=== PATIENT | male | born 1985 | race Caucasian/White ===

== ENCOUNTER → 2016-04-13 | Outpatient (REF) | payer OTHER ==
[~2016-04-13] MED LIST: BUPR150T3 PO; DEXTROAMP-AMPHETAMIN PO; PRAZ1CAP PO; TRAZO50TA PO; XANA0.5T PO
[2016-04-13 21:10] LABS: CONTROL LINE INT CTR LINE PRESENT; HIV SCRN NEGATIVE (NEGATIVE); HIV SCRN1 NEGATIVE (NEGATIVE)
== END ==
LOC: M LAB REF 16:16
PROVIDERS: ATTEND Nurse Practitioner Family
DX: Z11.59 Encounter for screening for other viral diseases (principal)

== ENCOUNTER 2016-12-10 13:26 | Emergency (ER) | payer OTHER ==
[~2016-12-10] VITALS: Ht 167.6 cm; Wt 77.3 kg
[2016-12-10] MEDS ORDERED: NS 1,000 ML IV ONE (14:00)
[2016-12-10 14:32] LABS: BASO % 0.5 % (0.0-1.0); EOS # 0.2 K/mm3 (0.0-0.50); EOS % 2.5 % (0.0-3.0); LARGE UNSTAINED CELL # 0.2 K/mm3 (0.0-0.4); LARGE UNSTAINED CELL % 2.9 % (0.0-4.0); LYMPH # 1.8 K/mm3 (1.5-4.5); LYMPH % 22.7 % (24.0-44.0); MEAN CORPUSCULAR HEMOGLOBIN 31.3 pg (27.0-33.0); MEAN CORPUSCULAR HGB CONC 34.4 g/dl (32.0-36.5); MEAN CORPUSCULAR VOLUME 90.9 fl (80.0-96.0); MONO # 0.5 K/mm3 (0.0-0.8); MONO % 6.3 % (0.0-5.0); NEUTROPHILS # 5.1 K/mm3 (1.8-7.7); NEUTROPHILS % 65.2 % (36.0-66.0); PLATELET COUNT, AUTOMATED 289 k/mm3 (150-450); RED CELL DISTRIBUTION WIDTH 13.2 % (11.5-14.5); WHITE BLOOD COUNT 7.8 K/mm3 (4.0-10.0)
[2016-12-10 14:33] LABS: INR 0.88
[2016-12-10 14:55] LABS: ALBUMIN/GLOBULIN RATIO 1.18 (1.00-1.93); ALKALINE PHOSPHATASE 40 U/L (45-117); ALT/SGPT 25 U/L (12-78); AMYLASE 108 U/L (25-115); ANION GAP 8 MEQ/L (8-16); AST/SGOT 10 U/L (15-37); BILIRUBIN,DIRECT 0.1 MG/DL (0.0-0.2); BILIRUBIN,TOTAL 0.5 MG/DL (0.2-1.0); BLOOD UREA NITROGEN 15 MG/DL (7-18); CALCIUM LEVEL 9.2 MG/DL (8.5-10.1); CARBON DIOXIDE LEVEL 31 MEQ/L (21-32); CHLORIDE LEVEL 103 MEQ/L (98-107); CREATININE FOR GFR 0.86 MG/DL (0.70-1.30); GLOMERULAR FILTRATION RATE > 60.0 (>60); GLUCOSE, FASTING 84 MG/DL (70-105); POTASSIUM SERUM 4.2 MEQ/L (3.5-5.1); SODIUM LEVEL 142 MEQ/L (136-145); TOTAL PROTEIN 7.4 GM/DL (6.4-8.2)
[2016-12-10] MEDS ORDERED: GASTROGRAFIN SOLUTION 30ML PO ONE (15:25)
[2016-12-10] MEDS ORDERED: GASTROGRAFIN SOLUTION 30ML (Q9963) PO ONE (15:55)
[2016-12-10] MEDS ORDERED: ISOVUE-370 76% 100ML VIAL (Q9967) As Ordered ONE (16:54)
--- NOTE | 2016-12-10 17:20 | REP ---
Clinical: Rectal bleeding. Technique: Axial contrast enhanced images from the lung bases to the pubic symphysis using oral and 100 ml Isovue 370 intravenous contrast material with coronal and sagittal re-formations. Findings: Lung bases are clear. Visualized heart and pericardium normal. Liver, spleen, pancreas, gallbladder, bilateral adrenal glands and kidneys are normal. The enteric system is without obstruction and a normal terminal ileum and appendix are identified in the right lower quadrant. Subtle mural thickening to the descending colon may reflect a mild colitis. Pelvis demonstrates normal bladder and age appropriate prostate/seminal vesicles. No free air. No free fluid. No adenopathy or mass. Surrounding musculoskeletal structures are intact. Impression: 1. Cannot exclude a mild colitis with mural thickening to the descending colon. 2. Otherwise normal abdominopelvic CT. Signed by Ayush Sanchez MD 12/10/2016 05:12 P
[2016-12-10] MEDS ORDERED: MIRA3350 PO (17:44)
[2016-12-10] MEDS ORDERED: ANUC25SU PR (17:44)
[2016-12-10 17:57] VITALS: BP 129/76
== END 2016-12-10 17:59 | disposition home or self-care (01) ==
LOC: M ED 13:26
DX: K52.9 Noninfective gastroenteritis and colitis, unspecified (principal); Z87.891 Personal history of nicotine dependence
CPT/HCPCS: 74177; 80048; 80076; 82150; 83690; 85025; 85610; 85730; 86850; 86900; 86901; 96360; 96361; 99283; Q9963; Q9967

== ENCOUNTER 2017-03-20 11:57 | Emergency (ER) | payer OTHER ==
[~2017-03-20] VITALS: Ht 167.6 cm; Wt 72.7 kg
[2017-03-20 11:57] VITALS: BP 134/76
[~2017-03-20 11:57] MED LIST changes: +ANUC25SU PR; +MIRA3350 PO
[2017-03-20] MEDS ORDERED: IBUP40TA GT (12:05)
--- NOTE | 2017-03-20 12:37 | REP ---
Clinical: Chronic pain . Technique: Internal rotation, external rotation, and Y view. Findings: No acute fracture or dislocation. The acromioclavicular and glenohumeral joints are intact. No periarticular calcifications or degenerative changes are appreciated. Sub acromial space is normal. Surrounding soft tissues are unremarkable. Impression: Normal left shoulder radiographs. Signed by Ayush Sanchez MD 03/20/2017 12:28 P
== END 2017-03-20 14:52 | disposition home or self-care (01) ==
LOC: M ED 11:57
DX: M25.512 Pain in left shoulder (principal); Z87.891 Personal history of nicotine dependence

== ENCOUNTER → 2018-02-16 | Outpatient (REF) | payer OTHER ==
[2018-02-16 14:20] LABS: HIV 1&2 SCREEN CENTAUR NEGATIVE (NEGATIVE)
[2018-02-16 14:20] LABS: HEPATITIS C VIRUS ABY INDEX 0.1 INDEX (<0.8)
[2018-02-16 14:58] LABS: CHLAMYDIA DNA AMPLIFICATION NEGATIVE (NEGATIVE); GC DNA AMPLIFICATION NEGATIVE (NEGATIVE)
== END ==
LOC: M LAB REF 12:57
DX: Z72.51 High risk heterosexual behavior (principal)
CPT/HCPCS: 86803

== ENCOUNTER → 2019-06-09 | Outpatient (REF) | payer OTHER ==
[~2019-06-09] MED LIST changes: +IBUP40TA GT; +TRAZ1TAB6 PO; -TRAZO50TA PO
== END ==
LOC: M LAB REF 17:13
PROVIDERS: ATTEND Nurse Practitioner Family
DX: H91.01 Ototoxic hearing loss, right ear (principal)

== ENCOUNTER → 2019-09-14 | Outpatient (REF) | payer OTHER | LOC: M LAB REF 16:11 | PROVIDERS: ATTEND Nurse Practitioner Family | DX: H92.10 Otorrhea, unspecified ear (principal) ==

== ENCOUNTER 2020-06-12 12:44 | Emergency (ER) | payer OTHER ==
[~2020-06-12] VITALS: Ht 167.6 cm; Wt 82.5 kg
[~2020-06-12 12:44] MED LIST changes: +BUPR150T12 PO; -BUPR150T3 PO; +IBUP1TAB5 GT; -IBUP40TA GT
[2020-06-12] MEDS ORDERED: DEXTROAMP (12:57)
[2020-06-12] MEDS ORDERED: KETOROLAC 60MG 2ML VIAL IM ONE (13:45)
[2020-06-12] MEDS ORDERED: methocarbamoL 750 MG TAB PO ONE (13:45)
[2020-06-12] MEDS ORDERED: LIDOCAINE 5% (LIDODERM) PATCH TD ONE (13:50)
[2020-06-12] MEDS ORDERED: KETO10TAB PO (14:02)
[2020-06-12] MEDS ORDERED: ROBA750T4 PO (14:02)
[2020-06-12] MEDS ORDERED: LIDO5DIS41 TOP (14:03)
--- NOTE | 2020-06-12 14:06 | REP ---
INDICATION: shouldr pain. COMPARISON: None. TECHNIQUE: Three views. FINDINGS: The acromioclavicular and glenohumeral articulations are unremarkable. There is no fracture or dislocation. There are no calcifications or foreign bodies. Mineralization is normal. There is a bone island in the humeral head. IMPRESSION: Bone island in the humeral head. Otherwise, negative right shoulder. <Electronically signed by Marcio Limon > 06/12/20 [id number]
[2020-06-12 14:45] VITALS: BP 122/74
[2020-06-12] MEDS ORDERED: **NOTE PATIENT COMMENT** MISC XX SCH (21:00)
== END 2020-06-12 14:46 | disposition home or self-care (01) ==
LOC: M ED 12:44
DX: S43.51XA Sprain of right acromioclavicular joint, initial encounter (principal); X50.9XXA Other and unspecified overexertion or strenuous movements or postures, initial encounter; Y92.89 Other specified places as the place of occurrence of the external cause
CPT/HCPCS: 73030; 96372; 99284; J1885

== ENCOUNTER → 2020-06-26 | Outpatient (RCR) | payer OTHER ==
[~2020-06-26] MED LIST changes: +DEXTROAMP; +KETO10TAB PO; +LIDO5DIS41 TOP; +ROBA750T4 PO
== END ==
LOC: M PT 10:27
PROVIDERS: ATTEND Orthopaedic Surgery Sports Medicine
DX: M25.511 Pain in right shoulder (principal)

== ENCOUNTER → 2020-07-23 | Outpatient (CLI) | payer OTHER ==
[~2020-07-23] MED LIST changes: +ISOVUE-300 61% 50ML VIAL As Ordered ONE; +PROHANCE 279.3MG/ML 5ML VIAL As Ordered ONE
--- NOTE | 2020-07-23 10:08 | REP ---
INDICATION: INSTABILITY RIGHT SHOULER, LABRAL TEAR. COMPARISON: None TECHNIQUE: The procedure was performed by KATHRYN Peng, under the direct supervision of Dr. Crsepo. The benefits and risks of the procedure were explained to the patient, and an informed consent was obtained. Directly prior to the start of the procedure, a formal time-out was completed in the procedure room. The right glenoid joint space was localized using fluoroscopic guidance. The skin was prepped and draped in a sterile fashion. Approximately 5 mL of 1% Lidocaine 10 mg/ml was used as a local anesthetic. Using fluoroscopic guidance, a #22 gauge spinal needle was inserted and advanced into the right glenohumeral joint space. Approximately 1 mL of Isovue 300 was injected to verify placement. Twelve mL of a solution containing 20 mL of sterile saline and 0.15 mL of ProHance was injected into the joint space. The needle was removed and the patient was taken to MRI for post procedural imaging. FINDINGS: The patient tolerated the procedure well and there were no immediate complications. IMPRESSION: Fluoroscopic guided right shoulder MRI arthrogram injection. 0.1 minutes of fluoroscopy time was utilized for this procedure. Some fluoroscopic images are performed with last image hold technology. These images require no additional radiation. <Electronically signed by Lila Cody > 07/23/20 [id number] <Electronically signed by Juan Crespo > 07/23/20 [id number]
--- NOTE | 2020-07-23 11:53 | REP ---
INDICATION: INSTABILITY RIGHT SHOULER, LABRAL TEAR. COMPARISON: Comparison right shoulder radiographs are from June 12, 2020.. TECHNIQUE: The injection procedure is performed and dictated separately. Pre and post intra-articular gadolinium enhanced saline injected imaging is acquired. Imaging planes include axial, oblique coronal, oblique sagittal and ABER projection images. T1 and T2-weighted scans are included with and without fat saturation. FINDINGS: Pre-injection images demonstrate cortical and medullary bone signal intensity is normal in the shoulder girdle. Glenohumeral and acromioclavicular joints are normally aligned. There is a moderate-sized subacromial subdeltoid bursal effusion. No significant glenohumeral joint effusion is seen. There is mild subcortical cyst formation in the superolateral humeral head. A bone island is visible posterior all laterally as well. There is swelling and increased signal intensity on oblique coronal T1 and oblique coronal T2 weighted scans in the distal supraspinatus tendon consistent with moderate to advanced tendinitis tendinosis change. Post injection imaging shows good filling and enhancement of the right glenohumeral articulation. No anterior or posterior labral tear is seen. The superior labrum cartilage appears intact. T1 fat sat post injection images show no evidence of complete is supraspinatus tendon tear. There is a focus of low T1 low T2 signal intensity along the synovial surface of the distal supraspinatus tendon which may be a calcium deposit. Biceps tendon is intact. Infraspinatus and subscapularis tendons have an intact appearance. ABER images show no evidence of anterior labral disruption. IMPRESSION: Moderate to advanced tendinosis change in the distal supraspinatus tendon. Question calcium deposit within the tendon. Subacromial subdeltoid bursal effusion. No evidence of full-thickness cuff tear. No labral disruption is appreciated. <Electronically signed by Juan Crespo > 07/23/20 [id number]
== END ==
LOC: M RADPRO 06:41
PROVIDERS: ATTEND Orthopaedic Surgery Sports Medicine
DX: M67.811 Other specified disorders of synovium, right shoulder (principal); M25.411 Effusion, right shoulder
CPT/HCPCS: 23350; 73223; 77002; A9576; Q9967

== ENCOUNTER 2020-07-24 09:45 | Outpatient (RCR) | payer OTHER ==
[~2020-07-24 09:45] MED LIST changes: -ISOVUE-300 61% 50ML VIAL As Ordered ONE; -PROHANCE 279.3MG/ML 5ML VIAL As Ordered ONE
== END 2020-07-26 ==
LOC: M PT 09:45
PROVIDERS: ATTEND Orthopaedic Surgery Sports Medicine
DX: M25.511 Pain in right shoulder (principal)